=== PATIENT | male | born 1985 | race Caucasian/White ===

== ENCOUNTER 2021-11-21 14:47 | Emergency (ER) | payer OTHER ==
[2021-11-21 17:04] LABS: BILIRUBIN 3+ mg/dL (NEGATIVE); BLOOD 3+ Ery/uL (NEGATIVE); CLARITY TURBID (CLEAR); COLOR RED (YELLOW); GLUCOSE (U) TRACE mg/dL (NORMAL); LEUKOCYTES 2+ Leu/uL (NEGATIVE); NITRITE POSITIVE (NEGATIVE); PROTEIN 3+ mg/dL (NEGATIVE); SPECIFIC GRAVITY 1.025 (1.001-1.030); pH 6.5 (5.0-9.0)
[2021-11-21 17:08] LABS: BACTERIA TRACE; URINARY RBC TNTC; URINARY WBC RARE
[2021-11-21] MEDS ORDERED: PYRIDIUM100 MG PO (17:59)
[2021-11-21] MEDS ORDERED: BACTRIM DS TAB1 EACH PO (17:59)
[2021-11-23 22:10] LABS: CHLAMYDIA TRACHOMATIS, NAA Negative (Negative); NEISSERIA GONORRHOEAE, NAA Negative (Negative)
== END 2021-11-21 18:20 | disposition home or self-care (01) ==
LOC: FER 14:47
PROVIDERS: Emergency Medicine; Nurse Practitioner Family
DX: N39.0 Urinary tract infection, site not specified (principal); Z28.310 Unvaccinated for COVID-19
CPT/HCPCS: 81001; 87088; 87491; 87591; 99283; J0696

== ENCOUNTER 2021-12-18 00:42 | Emergency (ER) | payer OTHER ==
[~2021-12-18 00:42] MED LIST: BACTRIM DS TAB1 EACH PO; PYRIDIUM100 MG PO
[2021-12-18 01:37] LABS: BASOPHIL 0.6 % (0-2); EOSINOPHIL 7.7 % (0-5); HCT 40.8 % (42.0-52.0); HGB 14.3 g/dl (13.2-18.0); LYMPHOCYTE 26.8 % (15-48); MCH 30.2 pg (25.0-31.0); MCV 86.3 fL (78.0-100.0); MONOCYTE 13.1 % (0-12); MPV 10.9 fL (6.0-9.5); NEUTROPHIL 51.6 % (41-80); NRBC 0; PLT 156 K/uL (150-400); RBC 4.73 M/uL (4.70-6.00); RDW 12.3 % (11.5-14.0); WBC 4.8 K/uL (4.0-10.5)
[2021-12-18 01:49] LABS: BILIRUBIN - TOTAL 0.6 mg/dL (0.2-1.0); BUN/CREAT RATIO (CALC) 17.2 RATIO; CREATININE 0.99 mg/dL (0.67-1.17); GLOBULIN (CALCULATION) 3.1 g/dL; POTASSIUM 3.7 mmol/L (3.5-5.1); TOTAL PROTEIN 7.1 g/dL (6.4-8.2)
[2021-12-18 02:37] LABS: BILIRUBIN NEGATIVE (NEGATIVE); BLOOD NEGATIVE Ery/uL (NEGATIVE); CLARITY CLEAR (CLEAR); COLOR YELLOW (YELLOW); GLUCOSE (U) NORMAL (NORMAL); LEUKOCYTES NEGATIVE Leu/uL (NEGATIVE); NITRITE NEGATIVE (NEGATIVE); PROTEIN NEGATIVE (NEGATIVE); SPECIFIC GRAVITY >=1.030 (1.001-1.030); pH 6.5 (5.0-9.0)
[2021-12-18 02:53] LABS: CORONAVIRUS 2019 SARS-COV-2 NEGATIVE (NEGATIVE); INFLUENZA A NAA NEGATIVE (NEGATIVE)
[2021-12-18 03:44] LABS: INR 1.12 (0.9-1.2); PROTHROMBIN TIME 14.1 SECONDS (11.9-13.9)
[2021-12-18 03:45] LABS: PTT 32.9 SECONDS (24.9-34.6)
== END 2021-12-18 03:53 | disposition home or self-care (01) ==
LOC: FER 00:42
PROVIDERS: Internal Medicine
DX: R10.2 Pelvic and perineal pain (principal); M54.9 Dorsalgia, unspecified; I10 Essential (primary) hypertension; F17.290 Nicotine dependence, other tobacco product, uncomplicated; Z20.822 Contact with and (suspected) exposure to COVID-19; Z79.899 Other long term (current) drug therapy
CPT/HCPCS: 36415; 80053; 81003; 84145; 85025; 85610; 85730; J0696; J7030; U0002